=== PATIENT | male | born 1955 | race Caucasian/White ===

== ENCOUNTER 2017-05-04 14:37 | Outpatient (CLI) | payer OTHER ==
--- NOTE | 2017-05-04 15:41 | ULT ---
RENAL ULTRASOUND: CLINICAL HISTORY: Renal insufficiency. FINDINGS: Demonstrated right renal length is approximately 15 cm and the left renal length approximately 12 cm. There is a rounded focus of decreased echogenicity at the level of the pole of the right kidney codie suring up to 6.6 cm in diameter. Subtle internal echoes are present without evidence of discernible internal flow. The internal echoes may relate to reverberation artifact. The urinary bladder is grossly unremarkable. There is no overt hydronephrosis of either kidney. IMPRESSION: 1. Right renal cyst, prominent in size. 2. No overt hydronephrosis. POS: [facility]
== END 2017-05-04 14:38 | disposition home or self-care (01) ==
LOC: ULT 14:37
PROVIDERS: ATTEND Urology
DX: N18.9 Chronic kidney disease, unspecified (principal); N28.1 Cyst of kidney, acquired
CPT/HCPCS: 76770

== ENCOUNTER 2017-07-19 11:15 | Outpatient (CLI) | payer OTHER | END 2017-07-19 11:16 | disposition home or self-care (01) | LOC: BICRAD 11:15 | PROVIDERS: ATTEND Internal Medicine | DX: M25.562 Pain in left knee (principal) ==

== ENCOUNTER 2018-04-30 11:46 | Emergency (ER) | payer OTHER ==
[2018-04-30 12:18] LABS: #Eosinphils 0.1 thou/uL (0.0-0.7); #Lymphocytes 2.2 thou/uL (1.20-3.40); #Monocytes 0.5 thou/uL (0.11-0.59); #Neutrophils 5.2 thou/uL (1.40-6.50); %Basophils 0.5 % (0.0-1.0); %Lymphocytes 27.8 % (21.0-51.0); %Monocytes 6.2 % (0.0-10.0); %Neutrophils 64.5 % (42.0-75.0); Hemoglobin 15.3 g/dL (14.0-18.0); Mean Corpuscular HGB CONC 32.5 g/dL (32.0-36.0); Mean Corpuscular Volume 92.4 fL (78.0-98.0); Mean Platelet Volume 9.3 fL (7.4-10.4); Platelet Count 210 thou/uL (130-400); RBC Distribution Width 12.5 % (11.5-14.5); Red Blood Cell (RBC) Count 5.08 mill/uL (4.70-6.10)
[2018-04-30 12:47] LABS: ALT (SGPT) 17 U/L (8-55); AST (SGOT) 17 U/L (5-34); Albumin 4.2 g/dL (3.4-4.8); Alkaline Phosphatase 81 U/L (40-150); Anion Gap 13 mmol/L (10-20); BUN (Urea Nitrogen) 25 mg/dL (8.4-25.7); Bilirubin, Total 0.7 mg/dL (0.2-1.2); CK (CPK) 51 U/L (30-200); Calc. Creatinine Clearance 0 mL/min (70-130); Calcium 9.7 mg/dL (7.8-10.44); Carbon Dioxide 28 mmol/L (23-31); Estimated GFR-MDRD 50; Globulin 3.4 g/dL (2.4-3.5); Glucose 84 mg/dL (80-115); Lipase 32 U/L (8-78); Protein, Total 7.6 g/dL (5.8-8.1)
[2018-04-30 12:51] LABS: Chloride 105 mmol/L (98-107); Sodium 142 mmol/L (136-145)
--- NOTE | 2018-04-30 13:27 | RAD ---
PORTABLE AP CHEST: Date: 04/30/18 HISTORY: Chest pain and chest congestion for 10-12 days. COMPARISON: No recent comparison is available. Prior chest x-ray on 03/05/06 is made available. FINDINGS: Cardiac silhouette and pulmonary vasculature are within normal limits. The lungs do appear clear. [facility]lene st is overall stable compared to the prior study. IMPRESSION: No acute cardiopulmonary process. POS: [facility]
[2018-04-30] MEDS ORDERED: cloNIDine 0.1 MG TAB ONE (13:56)
[2018-04-30 14:44] LABS: Troponin I 0.063 ng/mL (< 0.028)
--- NOTE | 2018-05-04 13:29 | EKG ---
Test Reason : Blood Pressure : / mmHG Vent. Rate : 066 BPM Atrial Rate : 066 BPM P-R Int : 154 ms QRS Dur : 090 ms QT Int : 428 ms P-R-T Axes : 052 -46 206 degrees QTc Int : 448 ms Sinus rhythm with Fusion complexes Possible Left atrial enlargement Left anterior fascicular block Left ventricular hypertrophy with repolarization abnormality Abnormal ECG Confirmed by RADHA ARMENTA ([id number]), editor publications TIERRA BERRY ([id number]) on 05/04/2018 1:28:43 PM Referred By: Confirmed By:RADHA ARMENTA
--- NOTE | 2018-05-04 13:29 | EKG ---
Test Reason : Blood Pressure : / mmHG Vent. Rate : 058 BPM Atrial Rate : 058 BPM P-R Int : 150 ms QRS Dur : 094 ms QT Int : 488 ms P-R-T Axes : 027 -44 207 degrees QTc Int : 479 ms Sinus bradycardia Left axis deviation Left ventricular hypertrophy with repolarization abnormality Abnormal ECG Confirmed by RADHA ARMENTA ([id number]), newspaper photo editor TIERRA BERRY ([id number]) on 05/04/2018 1:28:50 PM Referred By: Confirmed By:RADHA ARMENTA
== END 2018-04-30 15:06 | disposition home or self-care (01) ==
LOC: ERS 11:46
DX: R05 Cough (principal); I10 Essential (primary) hypertension; F17.210 Nicotine dependence, cigarettes, uncomplicated; Z79.899 Other long term (current) drug therapy
CPT/HCPCS: 36415; 71045; 80053; 82550; 82553; 83690; 83880; 84484; 85025; 93005; 94640; J7620

== ENCOUNTER 2018-05-07 23:21 | Inpatient (IN) | payer OTHER ==
[~2018-05-07 23:21] MED LIST: ISOVUE-370 76%-LOCM 1 ML ONE
[2018-05-07] MEDS ORDERED: Adenosine 6 MG/2 ML VIAL ONE (23:38)
[2018-05-07] MEDS ORDERED: Metoprolol Tartrate 5 MG/5 ML VIAL ONE (23:52)
--- NOTE | 2018-05-08 00:03 | RAD ---
PORTABLE UPRIGHT FRONTAL CHEST RADIOGRAPH 05/07/18 COMPARISON: 04/30/18 HISTORY: Chest pain and chest congestion. FINDINGS: The heart and mediastinal contours are stable. Lungs appear clear. IMPRESSION: No acute findings. POS: [facility]
[2018-05-08 00:15] LABS: #Basophils 0.1 thou/uL (0.0-0.2); #Eosinphils 0.1 thou/uL (0.0-0.7); #Lymphocytes 2.5 thou/uL (1.20-3.40); #Monocytes 0.8 thou/uL (0.11-0.59); #Neutrophils 7.2 thou/uL (1.40-6.50); %Eosinophils 1.1 % (0.0-10.0); %Lymphocytes 23.6 % (21.0-51.0); %Monocytes 7.3 % (0.0-10.0); Hemoglobin 15.7 g/dL (14.0-18.0); Mean Corpuscular Hemoglobin 29.9 pg (27.0-31.0); Mean Corpuscular Volume 93.2 fL (78.0-98.0); Mean Platelet Volume 9.7 fL (7.4-10.4); Platelet Count 219 thou/uL (130-400); RBC Distribution Width 12.2 % (11.5-14.5); Red Blood Cell (RBC) Count 5.25 mill/uL (4.70-6.10); White Blood Cell (WBC) Count 10.7 thou/uL (4.8-10.8)
[2018-05-08 00:35] LABS: ALT (SGPT) 14 U/L (8-55); AST (SGOT) 17 U/L (5-34); Albumin 4.1 g/dL (3.4-4.8); Alkaline Phosphatase 74 U/L (40-150); Anion Gap 18 mmol/L (10-20); BUN (Urea Nitrogen) 27 mg/dL (8.4-25.7); Bilirubin, Total 0.4 mg/dL (0.2-1.2); CK (CPK) 53 U/L (30-200); Calc. Creatinine Clearance 0 mL/min (70-130); Calcium 9.1 mg/dL (7.8-10.44); Carbon Dioxide 18 mmol/L (23-31); Chloride 105 mmol/L (98-107); Estimated GFR-MDRD 41; Globulin 3.3 g/dL (2.4-3.5); Glucose 164 mg/dL (80-115); Potassium 3.8 mmol/L (3.5-5.1); Protein, Total 7.4 g/dL (5.8-8.1); Sodium 137 mmol/L (136-145)
[2018-05-08 01:08] LABS: CKMB 1.9 ng/mL (0-6.6)
[2018-05-08] MEDS ORDERED: Acetaminophen 325 MG TAB PO PRN (01:56)
[2018-05-08] MEDS ORDERED: Ondansetron PF 4 MG/2 ML Vial IVP PRN (01:56)
[2018-05-08] MEDS ORDERED: cloNIDine 0.1 MG TAB PO PRN (01:58)
[2018-05-08] MEDS ORDERED: Labetalol HCl 100 MG/20 ML VIAL SLOW IVP SCH (02:00)
[2018-05-08] MEDS ORDERED: Labetalol HCl 100 MG/20 ML VIAL SLOW IVP PRN (02:00)
[2018-05-08] MEDS ORDERED: Vancomycin HCl 1 GM in Premix Bag 1 BAG IVPB SCH (02:10)
[2018-05-08] MEDS ORDERED: cefTRIAXone\\ROCEPHIN 2 GM in Sodium Chloride 0.9% 100 ML IVPB SCH (02:15)
[2018-05-08 03:16] LABS: #Basophils 0.1 thou/uL (0.0-0.2); #Eosinphils 0.1 thou/uL (0.0-0.7); #Lymphocytes 2.6 thou/uL (1.20-3.40); #Monocytes 0.7 thou/uL (0.11-0.59); #Neutrophils 4.7 thou/uL (1.40-6.50); %Basophils 1.5 % (0.0-1.0); %Eosinophils 1.4 % (0.0-10.0); %Lymphocytes 31.1 % (21.0-51.0); %Monocytes 8.7 % (0.0-10.0); %Neutrophils 57.3 % (42.0-75.0); Hemoglobin 14.7 g/dL (14.0-18.0); Mean Corpuscular HGB CONC 32.8 g/dL (32.0-36.0); Mean Corpuscular Hemoglobin 30.5 pg (27.0-31.0); Mean Corpuscular Volume 92.9 fL (78.0-98.0); Mean Platelet Volume 9.5 fL (7.4-10.4); Platelet Count 211 thou/uL (130-400); RBC Distribution Width 12.1 % (11.5-14.5); Red Blood Cell (RBC) Count 4.83 mill/uL (4.70-6.10); White Blood Cell (WBC) Count 8.2 thou/uL (4.8-10.8)
[2018-05-08 03:40] LABS: Troponin I 0.045 ng/mL (< 0.028)
[2018-05-08] MEDS ORDERED: Metoprolol Tartrate 25 MG TAB ONE (03:46)
[2018-05-08 03:51] LABS: Anion Gap 14 mmol/L (10-20); BUN (Urea Nitrogen) 24 mg/dL (8.4-25.7); Calc. Creatinine Clearance 72 mL/min (70-130); Calcium 8.8 mg/dL (7.8-10.44); Carbon Dioxide 19 mmol/L (23-31); Chloride 109 mmol/L (98-107); Estimated GFR-MDRD 52; Glucose 86 mg/dL (80-115); Potassium 4.3 mmol/L (3.5-5.1); Sodium 138 mmol/L (136-145)
--- NOTE | 2018-05-08 05:18 | HP ---
PRIMARY CARE PHYSICIAN: Dr. Luis Ibarra. CODE STATUS: Full code. TIME OF EVALUATION: 2:00 a.m. CHIEF COMPLAINT: Chest pain and high blood pressure. HISTORY OF PRESENT ILLNESS: This is a 62-year-old male patient with past medical history significant for medical history of hypertension and 2 to 3 years ago, had some kind of arrhythmia, was treated by Dr. Hernandez and Dr. Hernandez had told him that he was cured from that problem and never had any problem anymore. Today, the patient woke up, was having midsternal chest pain that was bothersome, 3/10. No clear triggers. No alleviating factors. The patient went and checked his blood pressure and heart rate, and noticed that blood pressure was in the 200s and the heart rate was 170, he waited few minutes and rechecked it and it was all the same thing. The patient took one dose of at home and decided to come to the hospital. Here, he was found to be in PSVT and was given adenosine that broke down the rhythm. The patient now in normal sinus rhythm, was still hypertensive. We will treat for hypertensive urgency, and we will monitor on tele. Symptoms were severe. Symptoms started suddenly. REVIEW OF SYSTEMS: CONSTITUTIONAL: No fever, chills, or generalized weakness. RESPIRATORY: No cough, sputum production, or shortness of breath. CARDIOVASCULAR: The patient has chest tightness with palpitation and hypertension. GASTROINTESTINAL: The patient had nausea. No vomiting, diarrhea, or abdominal pain. EMERGENCY MEDICAL DISPATCHER: No dizziness, headache, or feeling lightheaded. GENITOURINARY: No burning on urination. EXTREMITIES: No leg swelling. All other systems were reviewed and negative except for the findings mentioned above. PAST MEDICAL HISTORY: Positive for hypertension. FAMILY HISTORY: Mother from Alzheimer's and father from lung cancer. PAST SURGICAL HISTORY: Right-sided testicle removal. PSYCHIATRIC HISTORY: No previous psych history. SOCIAL HISTORY: No drugs or alcohol. The patient quit smoking three weeks ago. ALLERGIES: KNOWN ALLERGIES TO PENICILLIN. REPORTED MEDICATIONS: Losartan/hydrochlorothiazide. PHYSICAL EXAMINATION: VITAL SIGNS: On presentation; blood pressure 193/153, heart rate 117, respiratory rate was 20, temperature 97.6. Pain is 3/10. Oxygen saturation 99% on room air. GENERAL APPEARANCE: The patient is alert, oriented, not in acute distress. HEENT: Eyes, normal conjunctivae. Moist oral mucosa. Anicteric. No JVD. RESPIRATORY: Bilateral air entry. No rales. No wheezing. Symmetric expansion. CARDIOVASCULAR: Normal rate and regular rhythm. No murmurs, no gallops, no edema. The patient is hypertensive. Heart rate is controlled. ABDOMEN: Soft. Normal bowel sounds. MUSCULOSKELETAL: Baseline range of motion and strength. No tenderness. SKIN: Warm, intact. No pallor. No rash. No redness. Peripheral pulses are present. Capillary refill seems to be intact. NEURO: No evidence of any new focal weakness. Baseline speech. Cranial nerves seems to be intact. PSYCHIATRIC: The patient is in good mood. No anxiety. Optimal judgment. DIAGNOSTIC STUDIES: EKG was reviewed and disclosed with ER provider. The patient presented with sinus tachycardia. VT at the rate of 169, FL 122, with QT corrected of 513. After adenosine, EKG was reviewed. The patient has normal sinus rhythm with a rate of 68, incomplete RBBB, left anterior fascicular block, FL 176, QT corrected 150. Labs were reviewed. White count 10.7, hemoglobin 15.7, MCV 93.2, and platelet count 219. Chemistry; sodium 137, potassium 3.8, chloride 105; carbon dioxide 19, anion gap of 18, BUN 27, creatinine 1.7, GFR 41, glucose 164, calcium 9.1, and total bilirubin 0.4. LFTs were negative. Troponin 0.036. Beta natriuretic peptide 87.50. Total protein 7.4, albumin 4.1, globulin 3.3, and albumin-globulin ratio is 1.2. ASSESSMENT AND PLAN: The patient will be placed in the hospital with following medical problems: 1. Paroxysmal supraventricular tachycardia. The patient presented with heart rate in the 170s. Breakdown with adenosine 6 mg. We will do echo in the morning. We will consult Cardiology. We will monitor on tele. We will treat arrhythmia and pending the patient's progress clinically. As of now, he is stable. 2. Hypertensive urgency. The patient has very high blood pressure in the systolic in the 170s to 190s. We have started to give IV p.r.n. medications. We will put the patient on clonidine, we will monitor. If uncontrolled, we might start him on Cardene drip. The patient does not have any symptoms with high blood pressure. No evidence of any acute target organ damage. 3. Deep venous thrombosis prophylaxis. 4. Possible acute kidney injury on chronic kidney disease. Creatinine is 1.7, initially it was 1.4 and during the previous admission, it was 1.4, so the patient has a chronic kidney disease. We will monitor kidney function, we will treat accordingly. If not improving, might need Nephrology consultation. 5. Hyperglycemia of glucose 164. The patient did not report being a diabetic, could be secondary to acute physical distress. We will monitor. We will treat accordingly. 6. Indeterminate troponin of 0.036, it is very minimally elevated, we will trend troponins, we will treat accordingly. No further intervention noted on decreasing blood pressure at this point. Job ID: [id number]
[2018-05-08] MEDS ORDERED: Adenosine 6 MG/2 ML VIAL ONE (05:27)
[2018-05-08 06:24] LABS: Troponin I 0.039 ng/mL (< 0.028)
[2018-05-08] MEDS ORDERED: Enoxaparin Sodium 40 MG/0.4 ML SYRINGE SC SCH ×2 (09:00→09:30)
[2018-05-08] MEDS ORDERED: Senokot S 8.6-50 MG TAB PO PRN (09:19)
[2018-05-08] MEDS ORDERED: Bisacodyl 5 MG TAB PO PRN (09:19)
--- NOTE | 2018-05-08 09:27 | CT ---
PRELIMINARY REPORT/[facility]/EMERGENTY AFTER-HOURS PROCEDURE CT Angiography Chest With Contrast EXAM DATE/TIME: 05/08/2018 12:18 AM CLINICAL HISTORY: 62 years old, male; dry, hacking cough. chest pain; woke from sleep with midsternal "soreness". He re ports URI symptoms x 10 days - treated by his pcp. upon waking tonight he took his BP and it was 180- 190 systolic, took total of 1300mg of asa prior to arrival. TECHNIQUE: Axial computed tomographic angiography images of the chest with intravenous contrast using CT angiogr aphy protocol. MIP reconstructed images were created and reviewed. COMPARISON: No relevant prior studies available. FINDINGS: Pulmonary arteries: No evidence of pulmonary embolism. Aorta: Approximate 4.3 cm non-ruptured aneurysmal dilatation of the ascending thoracic aorta. Lungs: No alveolar infiltrate. 2 mm nodule lateral left upper lobe axial image 25. Two 4-5 mm nodules along the minor fissure. Two 3-4 mm nodules within the inferior right lower lobe on axial images 90 and 94-95. 3 mm nodule adjacent to the inferior left major fissure. Pleural space: No pleural fluid collection. No pneumothorax. Heart: No RV dysfunction. No pericardial effusion. Liver: Small cysts within the liver. Lymph nodes: No pathologically enlarged lymph nodes. Bones/joints: Spinal degenerative changes. Soft tissues: Unremarkable. IMPRESSION: 1. No evidence of pulmonary embolism. 2. No alveolar infiltrate. 3. Approximate 4.3 cm non-ruptured aneurysmal dilatation of the ascending thoracic aorta. 4. 2 mm nodule lateral left upper lobe axial image 25. Two 4-5 mm nodules along the minor fissure. Tw o 3-4 mm nodules within the inferior right lower lobe on axial images 90 and 94-95. 3 mm nodule adjac ent to the inferior left major fissure. A total For patients at low risk (minimal or absent history o f smoking and of other known risk factors), no routine follow-up is indicated. For patients at high r isk (history of smoking or of other known risk factors), consider optional CT at 12 months. (Nate et al., Fleischner Society, 2017). Thank you for allowing us to participate in the care of your patient. Dictated and Authenticated by: Beka Siddiqui MD 05/08/2018 1:09 AM Central Time ([place] & [place]) FINAL REPORT CT ARTERIOGRAM CHEST WITH IV CONTRAST AND 3D MIP IMAGING PERFORMED ON AN EMERGENCY BASIS: Date: 05/08/18 Time: 0020 hours HISTORY: Chest pain. Dyspnea. FINDINGS: Findings agree with the preliminary report by [facility]. No CT evidence of pulmonary embolus. Mild dilatat ion of the ascending aorta. Small bilateral parenchymal lung nodules, less than 0.8 cm. POS: [facility]
[2018-05-08] MEDS ORDERED: Enoxaparin Sodium 40 MG/0.4 ML SYRINGE ONE (11:26)
[2018-05-08 12:39] VITALS: BMI 27.3
--- NOTE | 2018-05-08 14:30 | PDOC.EVN ---
Event Note - Event Note Event Note: Pt seen and examined in ER feels much better chart reviewd HR and BP controlled. will start Losartan again. ECHO. Trand troponin. may need cath ? SSS. Gives history of fast HR and then very slow when he was on BB. Change to inpt due to uncontrolled HTN w 222/138 and due to PSVT.will libertad need cath and PPM placement Titrate BP meds to control HR as well. CTA show Ascdening AA <[address] in 6 months cardiology recs requested
[2018-05-08] MEDS: Carvedilol 6.25 MG TAB PO SCH (17:34)
--- NOTE | 2018-05-08 22:37 | CON ---
DATE OF CONSULTATION: CARDIOLOGY CONSULT PRIMARY CARE PHYSICIAN: Dr. Ibarra PRIMARY RESIDENTIAL CAREGIVER: Dr. Claire Hernandez. REFERRING PHYSICIAN: Dr. Keith. REASON FOR CARDIOLOGY CONSULT: Chest pain rule out. HISTORY OF PRESENT ILLNESS: The patient is a 62-year-old male with a significant history of hypertension. He has seen Dr. Hernandez about 10 years ago, and he had cardiac catheterization in 2002, which showed normal coronary arteries with EF 65% to 70%. The patient was doing well until last night. Around 8 o'clock, he just woke up and noticed that he had fullness to the midsternal area and pressure to the forehead. The patient checked blood pressure at that point, which was 187/154 with heart rate of 170. He took 2 tablets of aspirin 325 mg, and 30 minutes after the medication administration, his blood pressure continued to be more than 180 with a heart rate of 170s. The patient decided to present to emergency department for further evaluation and treatment. After the patient received adenosine chemical cardioversion, the patient's heart rates are going down to 60s, but while he was still in the ER, the patient's heart rates were going up to 130s. The patient received metoprolol IV push and the patient's heart rate were going back to 60s. Since then, the patient's heart rate remained in the sinus rhythm in the 60s. His blood pressure prior to this event has been in the 120s to 180s until April 25. After April 25, he was found to have upper respiratory infection, and he was prescribed prednisone. Since then, his blood pressure had been in the 150 to 100, but he does not have any severe cough since last May 05. The patient had echocardiogram done in February 2006, which showed EF of 55% to 60%. The patient was seen by Dr. Hernandez in 2005 for acute syncopal episode. The patient had an echocardiogram done, which showed EF 55% to 60%, mild tricuspid valve regurgitation, and mild pulmonary valve regurgitation. The patient underwent cardiac catheterization in March 2003, which showed normal coronary arteries with normal EF. Since then, he has not seen any merchandise flow manager. PAST MEDICAL HISTORY: Hypertension. PAST SURGICAL HISTORY: Right-sided testicle removed. FAMILY HISTORY: The patient's mother due to complication from Alzheimer's. The patient's father due to lung cancer. SOCIAL HISTORY: He is . He has 4 children, one children due to motor vehicle accident. Otherwise, 3 of them living well and healthy. The patient quit smoking about 3-1/2 weeks ago. He used to smoke 6 packs a day for 2 weeks and quit for 2 weeks for 21 years. 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 At that time, he does not smoke. He quit drinking about 5 years ago. He denied illicit drug abuse. He drinks coffee at least 20 cups a day while he is working because he had to work 24-hour shift. He is very active at work. He runs in the field in a fast pace without any cardiac complaints. ALLERGIES: HE IS ALLERGIC TO PENICILLIN. HOME MEDICATIONS: He is on losartan with hydrochlorothiazide 50/12.5 mg once a day. REVIEW OF SYSTEMS: A 12-point review of systems negative unless otherwise mentioned. He has chronic knee pain, especially the left knee. He receives steroid injection from Dr. Gustafson's office every 4 to 6 weeks. PHYSICAL EXAMINATION: VITAL SIGNS: Blood pressure at the floor 158/92, temperature 98.1, pulse is 60 and sinus rhythm, respiratory rate 16, O2 saturation 96% with room air. GENERAL: The patient is alert and oriented x4, not in acute distress. HEENT: Head normocephalic, atraumatic. Eyes; extraocular muscle movement intact. ENT and mouth; oral and nasal mucosa moist without lesion. NECK: No JVD. Supple. Normal range of motion. RESPIRATORY: Clear to auscultate bilaterally. No wheezing, rales, or rhonchi noted. CARDIOVASCULAR: Regular rate and rhythm. Normal S1, S2. There is no S3, S4. No significant murmur, hives, or thrills noted. 2+ pulses in the bilateral lower extremities. No edema. Carotid pulses are present without bruit or thrill. ABDOMEN: Soft, nontender. No mass to palpitate. Bowel sounds are present. SKIN: Warm and dry. No lesion, rash, bruises noted. He has like small less than 1 cm diameter ecchymosis in the back. Family member stated that it has happened since he was in the ER. MUSCULOSKELETAL: The patient is able to move all extremities without difficulty. The patient denied claudication. PSYCHIATRIC: The patient's mood is pleasant. NEUROLOGIC: The patient is alert and oriented x4, nonfocal. LABORATORY DATA: WBC 8.2, hemoglobin 14.7, hematocrit 44.8, and platelets 211. Sodium 138, potassium 4.3, BUN 24, creatinine 1.38, AST 17, ALT 14, CK-MB 1.9. Troponin 0.036, 0.045, 0.039. BNP is 87.5. Renal ultrasound report in April 2017 showed a right renal cyst, prominent in size. No overt hydronephrosis. The patient's chest and thoracic CTA showed no evidence of pulmonary embolism. A 4.3 nonruptured aneurysmal dilation of ascending thoracic aorta and a small cyst within the liver. The patient's chest x-ray showed no acute finding. ASSESSMENT AND PLAN: 1. Supraventricular tachycardia with status post adenosine cardioversion. The patient's heart rate has been stable at this moment. We would like to go ahead and start carvedilol 6.25 mg twice a day at this moment. The patient is going to have stress test tomorrow. The patient is having echocardiogram at this moment and results are pending at this moment. 2. Hypertension urgency: The patient's blood pressure is stable at this moment. Again, we would like to start carvedilol 6.25 mg twice a day. He is on losartan/hydrochlorothiazide 50/12.5 one tablet once a day. We would like to continue to monitor. 3. Acute kidney insufficiency: The patient's creatinine level is improving at this moment. We would like to continue to monitor. Thank you for allowing the Cardiology Service to participate in the care of this patient. We will follow along the patient's care team and make further evaluation as appropriate. Job ID: [id number]
[2018-05-09 05:51] LABS: Anion Gap 14 mmol/L (10-20); BUN (Urea Nitrogen) 24 mg/dL (8.4-25.7); Calc. Creatinine Clearance 59 mL/min (70-130); Calcium 9.5 mg/dL (7.8-10.44); Carbon Dioxide 25 mmol/L (23-31); Chloride 105 mmol/L (98-107); Estimated GFR-MDRD 42; Glucose 93 mg/dL (80-115); Potassium 4.6 mmol/L (3.5-5.1); Sodium 139 mmol/L (136-145)
--- NOTE | 2018-05-09 06:09 | CON ---
DATE OF CONSULTATION: 05/08/2018 Please refer to my dictation. INDICATION FOR CONSULTATION: A 62-year-old patient with poorly controlled hypertension which has been a recent and sudden onset and also a history of tachycardia which appeared to be SVT. HISTORY OF PRESENT ILLNESS: This is a very pleasant 62-year-old gentleman who I saw many years ago, who underwent cardiac catheterization around 1999 and again in 2003, was found to have minimal plaque in the left circumflex, otherwise no significant abnormalities were noted. He has had some problems with syncope in the past, which was felt to be due to beta blockers. The beta blockers were stopped and then he has had no further syncope. He was, however, admitted to the emergency room today. He came in due to his rapid heart rate after he checked his blood pressure this morning, was found to be significantly elevated. His heart rate was significantly elevated also, he presented to the emergency room and was found to be in SVT. He was given adenosine. The heart rate improved, but then he did have another episode of SVT, but now has been stable after he has been given some beta blockers, and at this time he is relatively asymptomatic. He denied any chest pain. He had had a cough recently and was either given antibiotics or steroids. He is uncertain. His said he was given antibiotics. He said he was given steroids. No one is definitely certain exactly what he had for about 3 days, but I suspect this was a Z-Salvador, but is uncertain. He may have had some steroids which may have caused some problems with elevation of the blood pressure. Otherwise, he has had no dizziness and he has had no significant problems. He has been doing very well since he was last seen in about 2003 by me. Otherwise, he had had no complaints. He does have hypertension, but denied any history of hypercholesterolemia or diabetes. He did smoke in the past , but stopped about 3 weeks ago. He stopped drinking about 5 years ago. Previously , he said he was relatively heavy smoker and drinker in the past. PAST MEDICAL HISTORY: Only significant for the minimal coronary disease, history of syncope, and history of hypertension. SOCIAL HISTORY: He is . He stopped smoking and stopped drinking as noted above. 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 FAMILY HISTORY: Noncontributory. MEDICATIONS: At this time include, 1. Toprol. 2. Aspirin. 3. Possibly, he was given a Z-Salvador. 4. I believe,at home, has been taking losartan/hydrochlorothiazide 50/12.5. ALLERGIES: HE HAS NO SIGNIFICANT ALLERGIES, BUT DOES HAVE INTOLERANCE TO LISINOPRIL WHICH CAUSES COUGH. REVIEW OF SYSTEMS: A 12-point review of systems unremarkable except what is noted above. He does wear glasses. He did have syncopal episodes many years ago, but no more after he stopped taking the beta blockers. PHYSICAL EXAMINATION: GENERAL: Reveals a very pleasant, well-developed, well-nourished gentleman, who is in no acute distress. VITAL SIGNS: Blood pressure is 138/91, earlier was 158/92. In the emergency room , it was significantly more elevated. At this time, he is afebrile, heart rate in the 60s, respiratory rate is 16, and O2 saturation 95%. HEENT: Reveals head to be normocephalic and atraumatic. Carotid pulses are present. There were no bruits. There is no JVD. The thyroid is not enlarged. Oral mucosa is pink and moist. CHEST: Clear to auscultation. There were no rales, rhonchi, or wheezing noted at this time. CARDIOVASCULAR: Reveals a regular rate and rhythm. There is normal S1 and S2. I do not hear an S3 nor an S4. No other any significant murmurs, heaves, thrills, bruits, or rubs. ABDOMEN: Soft, flat, and nontender. Positive bowel sounds are present. There is no organomegaly or masses noted. Femoral pulses are present. EXTREMITIES: No clubbing, cyanosis, or edema. Pedal pulses are present. NEUROLOGIC: The patient appears to be fully intact. He has normal strength and tone. SKIN: Warm and dry. IMAGING DATA: His EKG at this time shows a sinus rhythm, earlier did show evidence of supraventricular tachycardia. LABORATORY DATA: Shows a hemoglobin of 14.7, WBC of 8.2 with a platelet count of 211. His potassium was 4.3, creatinine was 1.7, now decreased down to 1.38. His troponin I is slightly indeterminate at 0.036, increased up to 0.045 and back down to 0.039, and is likely due to the elevated heart rate with the SVT. MB was 1.9. IMPRESSION: 1. Episode of supraventricular tachycardia. We will try to manage this by medications. We will ask repair welder to see this patient as he has not been able to tolerate beta blockers in the past and has syncopal episodes associated with Toprol. We will switch him at this time. His present medications, he has been on Coreg. We can obviously try this to see whether or not it works for him. I would continue the losartan. He may need to be taken off the diuretic aspect; although he has still hydrochlorothiazide associated with or involved with the losartan. The blood pressure is under much better control at this time. I am uncertain as to why he spiked up. He had been doing very well. He has been on lisinopril for many years until he was switched over to losartan. As far as his supraventricular tachycardia is concerned, we will ask repair welder to visit with him to see if there is any other recommendations whether or not he may need to undergo an ablation of the supraventricular tachycardia. 2. Hypertension, which we will need to control by medical management. 3. History of tobacco abuse. Fortunately, he stopped smoking about 3 weeks ago and I congratulated him on this. We will be more than happy to continue to follow the patient with you. Job ID: [id number] MTDD
[2018-05-09] MEDS: Carvedilol 6.25 MG TAB PO SCH ×2 (10:57→18:05)
[2018-05-09] MEDS: Losartan 25 MG TAB PO SCH (10:59)
[2018-05-09] MEDS: Enoxaparin Sodium 40 MG/0.4 ML SYRINGE SC SCH (11:42)
--- NOTE | 2018-05-09 12:10 | NM ---
MYOCARDIAL PERFUSION SCAN WITH SPECT IMAGING: History: Hypertension, coronary artery disease. Examination was performed using 32.2 mCi Technetium 99M Sestamibi on the stress and 9.8 mCi Technetiu m 99M Sestamibi on the resting images. FINDINGS: This shows a normal distribution of radiopharmaceutical without evidence of ischemia or scar. Wall motion: There is global hypokinesis noted. Left ventricular ejection fraction: The calculated left ventricular ejection fraction is 34%. IMPRESSION: 1. No evidence of ischemic change. 2. Diminished left ventricular ejection fracture of 34%. Please correlate with echocardiogram. POS: [facility]
--- NOTE | 2018-05-09 12:51 | CON ---
DATE OF CONSULTATION: 05/08/2018 ELECTROPHYSIOLOGY CONSULTATION REFERRING PHYSICIAN: Claire Hernandez MD REASON FOR CONSULTATION: Supraventricular tachycardia. HISTORY OF PRESENT ILLNESS: Mr. Valverde is a pleasant 62-year-old male, who around 8 o'clock this morning, woke up noticing he had fullness in his midsternal area and pressure to the forehead. His blood pressure was extremely elevated by his home blood pressure cuff and his heart rate was reading at 170 beats per minute. He took 2 full-dose aspirins, but continued to have hypertension and high heart rate prompting his presentation to the emergency room for further evaluation and treatment. He received adenosine for chemical cardioversion, bringing his heart rate down to the 60s, but while still in the ER, his heart rate would go back up to 130 beats per minute. He received IV metoprolol, which is largely kept in sinus rhythm with controlled heart rate since that time. He was admitted to observation for further evaluation and regarding the chest pain that he presented with as well as the tachycardia. He has struggled with high blood pressure prior to this event and is also being treated for an upper respiratory infection on prednisone. He is scheduled for stress test tomorrow morning. EP consult was initiated given his supraventricular tachycardia. Mr. Valverde is currently feeling well. He denies any current heart racing, palpitations, chest pain, pressure, syncope, near syncope, stroke, or stroke-like symptoms. Currently, he is feeling well. He was seen by Dr. Hernandez in the remote past for cardiac catheterization again in 2003, where he was found to have minimal plaque in the left circumflex. He also had some syncopal issues in the past attributed to beta-ericka therapy, which was then discontinued. PAST MEDICAL HISTORY: Hypertension, syncope, minimal coronary artery disease, diagnosed on catheterization in 2003. PAST SURGICAL HISTORY: Right testicle removed. FAMILY HISTORY: Mother passed from complications related to Alzheimer disease dementia. Father passed from lung cancer. SOCIAL HISTORY: with 4 children, 3 of them currently living, 1 passed in the motor vehicle accident. Quit smoking 3 weeks ago. Has an extensive history of tobacco habituation. 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 Quit drinking 5 years prior. Denies illicit drug use. Positive for high caffeine intake while working in the [employer]. ALLERGIES: PENICILLIN. HOME MEDICATIONS: Losartan/hydrochlorothiazide 50/12.5 mg daily. REVIEW OF SYSTEMS: A 12-point review of systems is conducted and is negative except that listed above in the HPI. It is positive for chronic left knee pain. PHYSICAL EXAMINATION: VITAL SIGNS: Temperature 98.1, pulse 60, blood pressure 130/91, respirations 16, and oxygen is 95% on room air. GENERAL: This is a well-groomed, well-nourished gentleman, in no apparent distress. HEENT: Normocephalic and atraumatic. Sclerae anicteric. EOMs are intact. Oral mucosa is moist and pink. Thyroid is not enlarged. NECK: Supple without jugular venous distention. CHEST: Clear to auscultation bilaterally without wheezes, crackles or rhonchi bilaterally. CARDIOVASCULAR: Heart rate is irregularly irregular with crisp S1 and S2. No significant murmurs, rubs, or gallops are appreciated. PMI is nondisplaced. ABDOMEN: Soft and nontender. Positive bowel sounds are noted throughout. EXTREMITIES: Warm and dry to touch without clubbing, cyanosis, or edema. NEUROLOGIC: The patient is nonfocal and exam is grossly intact. DATABASE: EKG and telemetry were all personally reviewed, largely reveal sinus rhythm in the 60s, which is the rhythm he is currently in, but initial EKG and telemetry tracings show paroxysmal atrial tachycardia versus atrial flutter. Echocardiogram on 05/08/2018, EF 35% to 40%. with global hypokinesis, mild dilation of the left atrium, right atrium normal size, mild mitral regurgitation, mild tricuspid regurgitation, dilated aortic root, LV size is severely increased at 7.3 cm. LABORATORY DATA: Hematology reviewed is unremarkable. Chemistry; potassium 4.6, creatinine 1.65. Serial troponins are slightly elevated, max is 0.045 deemed indeterminate. BNP 87.5. IMPRESSION: 1. Paroxysmal atrial tachycardia versus atrial flutter. 2. Newly found cardiomyopathy with ejection fraction of 35% to 40%. 3. Tendency for bradycardia with beta-ericka therapy. PLAN AND RECOMMENDATIONS: We discussed treatment options for his supraventricular tachycardia, which is likely a paroxysmal atrial tachycardia, alternately in atrial flutter. We discussed an EP study for improved diagnostics and also proceeding with radiofrequency ablation, pending the results of the EP study. Risks of EP study and ablation include bleeding, hematoma at the groin site, cardiac arrhythmias, perforation of the heart, pericardial effusion, possible need for chest tube insertion or CV surgery. The patient voices understanding and wishes to proceed with EP study and possible ablation tomorrow. We will keep him n.p.o. after midnight, pending laboratory sampler availability. Alternatively, we also discussed medical management, which would be somewhat limited as he is intolerant to beta blockers and had bradycardia with near syncope in the past while on beta-ericka therapy. Thank you for allowing us to participate in the care of this patient. Job ID: [id number]
--- NOTE | 2018-05-09 15:16 | PDOC.PN ---
- Subjective Encounter Start Date: 05/09/18 Encounter Start Time: 15:15 Subjective: feels well but still having episodes of HR in 130s .largely asymptomatic -: no CP/SOB - Objective Resuscitation Status - Order Detail: 05/08/18 01:56 Resuscitation Status Routine Resuscitation Status: FULL: Full Resuscitation MAR Reviewed: Yes Vital Signs & Weight: Vital Signs (12 hours) Temp Pulse Resp BP BP Pulse Ox 05/09/18 11:40 97.5 F L 54 L 17 123/85 97 05/09/18 10:57 161/92 H 05/09/18 08:40 95 05/09/18 07:36 98 F 56 L 18 118/74 95 Weight Weight 201 lb 4.513 oz I&O: 05/08/18 05/09/18 05/10/18 06:59 06:59 06:59 Intake Total 360 Output Total 1100 Balance -740 Result Diagrams: 05/08/18 03:08 05/09/18 04:35 Additional Labs: Laboratory Tests 07/07/16 08/22/16 03/12/17 10:42 07:35 11:23 Creatinine 2.32 H 1.96 H 1.80 H Troponin I B-Natriuretic Peptide 04/30/18 05/07/18 05/07/18 12:09 23:50 23:50 Creatinine 1.44 H 1.70 H Troponin I B-Natriuretic Peptide 87.5 05/07/18 05/08/18 05/08/18 23:50 03:08 03:08 Creatinine 1.38 H Troponin I 0.036 H 0.045 H B-Natriuretic Peptide 05/08/18 05/09/18 05:46 04:35 Creatinine 1.65 H Troponin I 0.039 H B-Natriuretic Peptide Radiology Reviewed by me: Yes (ECHO-EF 40%.Stress test-no ischemia. low EF) Phys Exam - Physical Examination Constitutional: NAD HEENT: PERRLA, moist MMs, sclera anicteric, oral pharynx no lesions Neck: no nodes, no JVD, supple, full ROM Respiratory: no wheezing, no rales, no rhonchi, clear to auscultation bilateral Cardiovascular: RRR, no significant murmur, no rub Gastrointestinal: soft, non-tender, no distention, positive bowel sounds Musculoskeletal: no edema, pulses present Neurological: non-focal, normal sensation, moves all 4 limbs Psychiatric: normal affect, A&O x 3 Skin: no rash Dx/Plan (1) PSVT (paroxysmal supraventricular tachycardia) Code(s): I47.1 - SUPRAVENTRICULAR TACHYCARDIA Status: Acute (2) Cardiomyopathy Code(s): I42.9 - CARDIOMYOPATHY, UNSPECIFIED Status: Chronic (3) HTN (hypertension) Code(s): I10 - ESSENTIAL (PRIMARY) HYPERTENSION Status: Chronic (4) CKD (chronic kidney disease) Code(s): N18.9 - CHRONIC KIDNEY DISEASE, UNSPECIFIED Status: Chronic Qualifiers: Chronic kidney disease stage: stage 2 (mild) Qualified Code(s): N18.2 - Chronic kidney disease, stage 2 (mild) - Plan plan discussed w/ family, DVT proph w/SCDs Cardiac ablation today d/t intolerance of BB. -: Low EF .? unknown cause.last Cath in 2003 w mild CAD -: stop HCTZ. -: started on eliquis.started on BB by cardiology-monitor -: HD stable for now * . Review of Systems - Review of Systems Constitutional: negative: fever, chills, sweats, weakness, malaise, other ENT: negative: Ear Pain, Ear Discharge, Nose Pain, Nose Discharge, Nose Congestion, Mouth Pain, Mouth Swelling, Throat Pain, Throat Swelling, Other Respiratory: negative: Cough, Dry, Shortness of Breath, Hemoptysis, SOB with Excertion, Pleuritic Pain, Sputum, Wheezing Cardiovascular: negative: chest pain, palpitations, orthopnea, paroxysmal nocturnal dyspnea, edema, light headedness, other Gastrointestinal: negative: Nausea, Vomiting, Abdominal Pain, Diarrhea, Constipation, Melena, Hematochezia, Other Genitourinary: negative: Dysuria, Frequency, Incontinence, Hematuria, Retention , Other Neurological: negative: Weakness, Numbness, Incoordination, Change in Speech, Confusion, Seizures, Other - Medications/Allergies Allergies/Adverse Reactions: Allergies Allergy/AdvReac Type Severity Reaction Status Date / Time Penicillins Allergy Verified 05/08/18 02:06 Medications: Current Medications Acetaminophen (Tylenol) 650 mg PO Q4H PRN PRN Reason: Headache/Fever/Mild Pain (1-3) Bisacodyl (Dulcolax) 10 mg PO DAILYPRN PRN PRN Reason: Constipation Carvedilol (Coreg) 6.25 mg PO BID-WM [facility] Last Admin: 05/09/18 10:57 Dose: 6.25 mg Clonidine (Catapres) 0.1 mg PO Q4H PRN PRN Reason: SBP>170/100 Enoxaparin Sodium (Lovenox) 40 mg SC 0900 [facility] Last Admin: 05/09/18 11:42 Dose: Not Given Losartan Potassium (Cozaar) 50 mg PO DAILY [facility] Last Admin: 05/09/18 10:59 Dose: 50 mg Ondansetron HCl (Zofran) 4 mg IVP Q6H PRN PRN Reason: Nausea/Vomiting Senna/Docusate Sodium (Senokot S) 2 tab PO BID PRN PRN Reason: Constipation Sodium Chloride (Flush - Normal Saline) 10 ml IVF Q12HR [facility] Last Admin: 05/09/18 10:57 Dose: 10 ml Sodium Chloride (Flush - Normal Saline) 10 ml IVF PRN PRN PRN Reason: Saline Flush
[2018-05-09] MEDS ORDERED: ADENOSINE 60 MG/20 ML VIAL ONE (16:42)
--- NOTE | 2018-05-09 18:03 | PRG ---
DATE OF SERVICE: 05/09/2018 ELECTROPHYSIOLOGY FOLLOWUP NOTE SUBJECTIVE: Mr. Valverde seems to be doing great today. No . Denies dizziness or loss of consciousness. OBJECTIVE: VITAL SIGNS: Blood pressure is 123/80, heart rate 52, respirations 18, temperature 98.3 degrees Fahrenheit. GENERAL: Alert and oriented man, no apparent distress. NECK: Supple. Jugular veins are not distended. CHEST: Coarse without crackles. HEART: Sounds regular rate and rhythm. No murmur or gallop. ABDOMEN: Benign. Bowel sounds positive, EXTREMITIES: Lower extremities without edema, clubbing, or cyanosis. DATABASE: The telemetry strips reviewed revealing sinus rhythm, sinus bradycardia, no recurrent SVT. ASSESSMENT AND PLAN: Mr. Valverde is a very pleasant 62-year-old man with history of hypertension, prior syncope, minimal coronary artery disease in the past. He presented with paroxysmal atrial tachycardia or atrial flutter documented in his EKG. He was noted to have reduced LVEF at 35% to 40%. He had tendency for tachy and bradyarrhythmias both PLAN: Our plan is to proceed with an EP study and ablation therapy, for now though scheduling issues. We will hold off on the procedure today. We will keep him without food tomorrow and plan to proceed with the ablation. Risks and benefits again discussed. He is willing to proceed. Thank you for allowing me to participate in the care of this patient. Job ID: [id number]
[2018-05-10] MEDS: Carvedilol 6.25 MG TAB PO SCH ×2 (08:35→18:02)
[2018-05-10] MEDS: Enoxaparin Sodium 40 MG/0.4 ML SYRINGE SC SCH (08:35)
[2018-05-10] MEDS: Losartan 25 MG TAB PO SCH (08:43)
[2018-05-10] MEDS ORDERED: Midazolam HCl 2 mg/2 ml Vial ONE (11:51)
[2018-05-10] MEDS ORDERED: Meperidine HCl/PF 25 MG/ML VIAL ONE (11:51)
[2018-05-10] MEDS ORDERED: Heparin 10,000 UNITS/1 ML VIAL ONE (11:55)
--- NOTE | 2018-05-10 11:57 | PDOC.CTH ---
Cardiology Progress Note - Subjective The pt seen and examined. No overnight events. No cardiac complaints. - Objective Vital Signs Temp Pulse Resp BP Pulse Ox 05/10/18 07:39 97.5 F L 55 L 20 119/79 96 05/10/18 03:14 59 L 18 123/81 98 Weight 201 lb 4.513 oz 05/09/18 05/10/18 05/11/18 06:59 06:59 06:59 Intake Total 360 720 Output Total 1100 700 Balance -740 20 - Physical Examination General/Neuro: alert & oriented x3 Neck: no JVD present Lungs: CTA Heart: RRR Abdomen: soft Extremities: other: (No edema) - Telemetry Telemetry Rhythm: SR - Labs Result Diagrams: 05/08/18 03:08 05/09/18 04:35 Troponin/CKMB CK-MB (CK-2) 1.9 ng/mL (0-6.6) 05/07/18 23:50 Troponin I 0.039 ng/mL (< 0.028) H 05/08/18 05:46 - Assessment/Plan 1. S/p PSVT with s/p Adnosine DCCV - Plan for SVT RFA today by Dr Humphries 2. Non-ischemic CMY - 3. HTN - stable 4. TIMMY - no chnaged MAR reviewed Pt. seen and eval. by me. I agree with the A/P by the [employer]. Chest clear. RRR at this time. Review of Systems - Review of Systems Constitutional: reports: no symptoms reported EENTM: reports: no symptoms reported Respiratory: reports: no symptoms reported Cardiac (ROS): reports: no symptoms reported ABD/GI: reports: no symptoms reported : reports: no symptoms reported Musculoskeletal: reports: no symptoms reported Skin: reports: no symptoms reported
[2018-05-10] MEDS ORDERED: PROPOFOL 200 MG/20 ML VIAL ONE (12:01)
[2018-05-10] MEDS ORDERED: Isoproterenol 0.2 MG/1 ML AMP ONE (12:53)
[2018-05-10] MEDS ORDERED: Propofol 500 MG/50 ML VIAL ONE (13:00)
[2018-05-10] MEDS ORDERED: Promethazine HCl 25 MG/ML VIAL SLOW IVP PRN (14:20)
[2018-05-10] MEDS ORDERED: Ondansetron HCl/PF 4 MG/2 ML Vial IVP PRN (14:20)
[2018-05-10] MEDS ORDERED: Promethazine HCl 25 MG/ML VIAL IM PRN (14:20)
[2018-05-10] MEDS ORDERED: hydrALAZINE 20 MG/ML VIAL ONE (14:54)
--- NOTE | 2018-05-10 14:56 | PDOC.PN ---
- Subjective Encounter Start Date: 05/10/18 Encounter Start Time: 14:55 Subjective: no complains, no cp or palpitations - Objective Resuscitation Status - Order Detail: 05/08/18 01:56 Resuscitation Status Routine Resuscitation Status: FULL: Full Resuscitation MAR Reviewed: Yes Vital Signs & Weight: Vital Signs (12 hours) Temp Pulse Resp BP Pulse Ox 05/10/18 08:35 96 05/10/18 07:39 97.5 F L 55 L 20 119/79 96 05/10/18 03:14 59 L 18 123/81 98 Weight Weight 201 lb 4.513 oz I&O: 05/09/18 05/10/18 05/11/18 06:59 06:59 06:59 Intake Total 360 720 Output Total 1100 700 Balance -740 20 Result Diagrams: 05/08/18 03:08 05/09/18 04:35 Phys Exam - Physical Examination HEENT: PERRLA, moist MMs, sclera anicteric, TM's clear, oral pharynx no lesions , 2+ tonsils Neck: no nodes, no JVD, supple, full ROM Respiratory: no wheezing, no rales, no rhonchi, clear to auscultation bilateral Cardiovascular: no significant murmur, no rub tachy Gastrointestinal: soft, non-tender, no distention, positive bowel sounds Musculoskeletal: no edema, pulses present Neurological: non-focal, normal sensation, moves all 4 limbs Psychiatric: normal affect, A&O x 3 Skin: no rash, normal turgor, cap refill <2 seconds Dx/Plan (1) PSVT (paroxysmal supraventricular tachycardia) Code(s): I47.1 - SUPRAVENTRICULAR TACHYCARDIA Status: Acute Comment: plans for ablation today, S/P adenosine and DCCV (2) CKD (chronic kidney disease) Code(s): N18.9 - CHRONIC KIDNEY DISEASE, UNSPECIFIED Status: Chronic Qualifiers: Chronic kidney disease stage: stage 2 (mild) Qualified Code(s): N18.2 - Chronic kidney disease, stage 2 (mild) (3) Cardiomyopathy Code(s): I42.9 - CARDIOMYOPATHY, UNSPECIFIED Status: Chronic Qualifiers: Cardiomyopathy type: other Qualified Code(s): I42.8 - Other cardiomyopathies Comment: NON ISCHEMIC (4) HTN (hypertension) Code(s): I10 - ESSENTIAL (PRIMARY) HYPERTENSION Status: Chronic - Plan cont current plan of care, plan discussed w/ family * .
--- NOTE | 2018-05-10 19:24 | OP ---
DATE OF PROCEDURE: 05/10/2018 This is an electrophysiology study and radiofrequency ablation report. REASON FOR PROCEDURE: Mr. Valverde is a pleasant 62-year-old man, who is experiencing supraventricular tachyarrhythmia episodes, here for ablation. DESCRIPTION OF PROCEDURE: The patient received propofol by Anesthesia specialist. After adequate level of sedation achieved, the left and right femoral venous area were prepped, draped, and anesthetized using subcutaneous lidocaine. A 6 and 8-Luxembourgish sheaths were introduced from the left side through which a decapolar and octapolar catheter were advanced to the right atrium, right ventricle, His bundle, and eventually to the CS position. Pacing and mapping recording were performed at each location. Following findings were noted. The baseline rhythm was sinus rhythm at a rate of 1035 milliseconds, RI 105, QRS 75 milliseconds, QT 367 milliseconds, AH 59 milliseconds, HV 56 milliseconds, sinus node recovery time was 1569, corrected sinus node recovery time was 534, AV Wenckebach cycle length was 320 milliseconds, retrograde was 440 milliseconds, and concentric retrograde VA conduction was seen. AV ERP was measured at 600/260 milliseconds. Dual AV tristen physiology was noted. Burst atrial pacing was able to reinduce atrial tachycardia, cycle length varying between 415 to 440 millisecond. At this point, the right femoral vein was cannulated and an 8-Luxembourgish sheath was introduced through which a ThermoCool SFST catheter was advanced to the right atrium. 3D map of the right atrium was obtained with activation map of the atrial tachycardia also was recorded. We were able to demonstrate earliest activation 18 milliseconds before CS in the right atrium from about 7 o'clock location on the tricuspid anulus. Cautery at this location was performed with total of 7 lesions in 3 minutes and 21 seconds duration at 40 logan delivered with max temperature of 31, average temperature of 21 degrees, and max impedence 188 ohms. During the cautery, the atrial tachycardia terminated and later was not reinducible with burst atrial pacing. Isuprel was administered at this point and then a reconnection reablated. Further burst atrial pacing did not induce further right or left atrial tachyarrhythmias. The cardiac silhouette did not change with the procedure and the patient tolerated the procedure well. CONCLUSION: 1. He has an inducible right atrial tachycardia originating in the inferolateral portion of the tricuspid anulus. 2. Cautery at the earliest activation eliminated tachyarrhythmia. 3. Borderline abnormal sinus tristen function seen. 4. Normal AV tristen and His-Purkinje function is seen, but dual AV tristen physiology was noted without inducibility of atrioventricular tristen reentrant tachycardia. PLAN: Routine followup. Job ID: [id number]
[2018-05-11 09:00] VITALS: TEMP 97.5
[2018-05-11 09:12] LABS: Anion Gap 11 mmol/L (10-20); BUN (Urea Nitrogen) 32 mg/dL (8.4-25.7); Calc. Creatinine Clearance 58 mL/min (70-130); Calcium 8.9 mg/dL (7.8-10.44); Carbon Dioxide 26 mmol/L (23-31); Chloride 106 mmol/L (98-107); Estimated GFR-MDRD 42; Glucose 88 mg/dL (80-115); Potassium 4.7 mmol/L (3.5-5.1); Sodium 138 mmol/L (136-145)
[2018-05-11] MEDS: Carvedilol 6.25 MG TAB PO SCH (09:34)
[2018-05-11] MEDS: Losartan 25 MG TAB PO SCH (09:34)
[2018-05-11] MEDS: Enoxaparin Sodium 40 MG/0.4 ML SYRINGE SC SCH (09:34)
[2018-05-11 09:39] VITALS: BP 139/63
--- NOTE | 2018-05-11 21:04 | EKG ---
Test Reason : Blood Pressure : / mmHG Vent. Rate : 100 BPM Atrial Rate : 100 BPM P-R Int : 162 ms QRS Dur : 094 ms QT Int : 360 ms P-R-T Axes : 054 -48 106 degrees QTc Int : 464 ms Sinus rhythm with Premature atrial complexes with Abberant conduction Possible Left atrial enlargement Left anterior fascicular block Left ventricular hypertrophy with repolarization abnormality Abnormal ECG Confirmed by RADHA ARMENTA ([id number]), technical writer and editor JESSIE SANCHEZ ([id number]) on 05/11/2018 9:03:54 PM Referred By: Confirmed By:RADHA ARMENTA
--- NOTE | 2018-05-11 21:04 | EKG ---
Test Reason : Blood Pressure : / mmHG Vent. Rate : 180 BPM Atrial Rate : 180 BPM P-R Int : 000 ms QRS Dur : 086 ms QT Int : 282 ms P-R-T Axes : 000 -45 184 degrees QTc Int : 488 ms Sinus tachycardia with short AL Left anterior fascicular block Left ventricular hypertrophy with repolarization abnormality Abnormal ECG Confirmed by RADHA ARMENTA ([id number]), scientific editor JESSIE SANCHEZ ([id number]) on 05/11/2018 9:03:54 PM Referred By: Confirmed By:RADHA ARMENTA
--- NOTE | 2018-05-11 21:04 | EKG ---
Test Reason : Blood Pressure : / mmHG Vent. Rate : 169 BPM Atrial Rate : 169 BPM P-R Int : 122 ms QRS Dur : 086 ms QT Int : 306 ms P-R-T Axes : 000 221 -07 degrees QTc Int : 513 ms Sinus tachycardia Right superior axis deviation Pulmonary disease pattern Abnormal ECG Confirmed by RADHA ARMENTA ([id number]), state editor JESSIE SANCHEZ ([id number]) on 05/11/2018 9:03:52 PM Referred By: Confirmed By:RADHA ARMENTA
--- NOTE | 2018-05-11 21:04 | EKG ---
Test Reason : Blood Pressure : / mmHG Vent. Rate : 068 BPM Atrial Rate : 068 BPM P-R Int : 176 ms QRS Dur : 100 ms QT Int : 424 ms P-R-T Axes : 042 -45 263 degrees QTc Int : 450 ms Normal sinus rhythm Possible Left atrial enlargement Incomplete right bundle branch block Left anterior fascicular block Left ventricular hypertrophy Abnormal ECG Confirmed by RADHA ARMENTA ([id number]), industrial editor JESSIE SANCHEZ ([id number]) on 05/11/2018 9:03:57 PM Referred By: Confirmed By:RADHA ARMENTA
--- NOTE | 2018-05-11 23:10 | DIS ---
DATE OF ADMISSION: 05/08/2018 DATE OF DISCHARGE: 05/11/2018 ADMISSION DIAGNOSES: 1. Paroxysmal supraventricular tachycardia. 2. Hypertensive urgency. 3. Acute kidney injury over chronic kidney disease. 4. Hyperglycemia. DISCHARGE DIAGNOSES: 1. Supraventricular tachycardia. 2. Hypertension. 3. Acute over chronic renal failure. HISTORY OF PRESENT ILLNESS: This is a 62-year-old gentleman who presented to the ER with chest pain and high blood pressure. On initial evaluation, the patient's heart rate was in 170s and regular with a blood pressure of 193/153, respiratory rate of 20, and temperature of 97.6, requiring adenosine 6 mg IV x1. The patient's blood pressure was then subsequently controlled with clonidine and Coreg. After further evaluation, EP took the patient for an ablation. After the ablation process, the patient's heart rate settled down to normal sinus rhythm. The patient was then discharged on Coreg and reduced dose of losartan as his creatinine had increased from 1.4 at baseline to 2.6 during discharge. The patient was advised to have a close followup with his primary care physician and also the insect control aide for his increasing creatinine. PROCEDURE NOTE: 1. The patient has an inducible right atrial tachycardia originating from the inferolateral portion of the tricuspid annulus. 2. Cautery, had earliest activation elevated tachyarrhythmia. DISCHARGE INSTRUCTIONS: 1. The patient was instructed to follow up with his insect control aide and also the primary care physician. 2. The patient was advised that his creatinine has bumped up from his baseline of 1.4 to 2.6. The patient to follow up for the same with his primary care physician. 3. Take the medications as prescribed. 4. Heart healthy diet. 5. Activity as tolerated. Job ID: [id number]
== END 2018-05-11 12:48 | disposition home or self-care (01) | DRG 274 ==
LOC: ERS 23:21 → OBSVTOIN 05-08 01:20 → ERHOLD 05-08 01:20 → 2SW 05-08 12:35
PROVIDERS: ADMIT Hospitalist; ATTEND Hospitalist
PROC: 02583ZZ Destruction of Conduction Mechanism, Percutaneous Approach (ICD-10-PCS; principal; 2018-05-10)
DX: I47.1 Supraventricular tachycardia (principal); N17.9 Acute kidney failure, unspecified; I16.1 Hypertensive emergency; I42.8 Other cardiomyopathies; F17.210 Nicotine dependence, cigarettes, uncomplicated; I12.9 Hypertensive chronic kidney disease with stage 1 through stage 4 chronic kidney disease, or unspecified chronic kidney disease; N18.2 Chronic kidney disease, stage 2 (mild); Z90.79 Acquired absence of other genital organ(s); Z88.0 Allergy status to penicillin; Z79.899 Other long term (current) drug therapy; R73.9 Hyperglycemia, unspecified
CPT/HCPCS: 36415; 71045; 71275; 76942; 78452; 80048; 80053; 82550; 82553; 83880; 84484; 85025; 93005; 93010; 93017; 93306; 93613; 93623; 93653; 96361; 96374; 96375; A9500; C1730; C1769; J0153; J0360; J1644; J1650; J2175; J2250; J2704; J3490; Q9966

== ENCOUNTER 2019-02-04 11:37 | Outpatient (CLI) | payer OTHER ==
--- NOTE | 2019-02-04 11:55 | RAD ---
EXAM: Chest PA and lateral: HISTORY: Dyspnea COMPARISON: 05/07/2018 FINDINGS: Heart: Normal cardiac silhouette Aorta: Unremarkable Pulmonary vessels: Normal Costophrenic angles: Costophrenic angles are clear. Lungs: No consolidation or masses. Pneumothorax: No pneumothorax Osseous structures: No osseous abnormalities IMPRESSION: No acute cardiopulmonary process.
== END 2019-02-04 11:38 | disposition home or self-care (01) ==
LOC: RAD 11:37
PROVIDERS: ATTEND Internal Medicine Pulmonary Disease
DX: R06.00 Dyspnea, unspecified (principal)
CPT/HCPCS: 71046

== ENCOUNTER 2019-04-28 11:37 | Outpatient (CLI) | payer OTHER ==
[2019-04-28] MEDS ORDERED: Iopamidol 370 76% 100 ML VIAL ONE (15:04)
--- NOTE | 2019-04-28 15:47 | CT ---
CT ANGIOGRAM CHEST WITH CONTRAST: Date: 04/28/2019 HISTORY: 63-year-old male follow-up pulmonary nodules and follow-up dilated aortic root. ICD-10: I77.810. TECHNIQUE: IV contrast: Isovue 370. Arterial bolus chasing scan performed through the entire chest, with contrast bolus timing for maximu m density at thoracic aorta. Coronal and sagittal 3D MIP reconstructions. COMPARISON: 05/08/2018. FINDINGS: Variability in measurements of aortic diameter depends on exact plate location and placement of curso rs on images. The numbers on the current report will differ from that of the prior report because of difference in cursor placement. Aortic root: 4.8 cm, unchanged. Mid ascending aorta: 4.7 cm, unchanged. Aortic arch: 3.3 cm, unchanged. Descending thoracic aorta: 3.4 cm, unchanged. No thoracic aortic dissection. No pleural effusion, consolidation, pulmonary edema, or pneumothorax. 0.5 cm pulmonary nodule abutting the lateral dome of the right hemidiaphragm (axial image 84 of 120, series 4), unchanged, and benign morphology. At least three noncalcified small triangular pulmonary nodules along the right minor fissure all have morphology classic for benign intrapulmonary lymph nodes with very thin craniocaudal dimensions, and approximately 5 mm or smaller in greatest dimensions, unchanged. These do not require followup. 2 mm noncalcified pulmonary nodule at lateral aspect of left upper lobe very close to the pleura is u nchanged and benign. No new suspicious pulmonary nodules. No mediastinal or hilar lymphadenopathy. No interval change overall. IMPRESSION: 1. Ectasia of ascending aorta. 2. Several benign pulmonary nodules. 3. No interval change overall in 1 year. POS: OFF
== END 2019-04-28 11:38 | disposition home or self-care (01) ==
LOC: BICCT 11:37
PROVIDERS: ATTEND Internal Medicine Pulmonary Disease
DX: I77.810 Thoracic aortic ectasia (principal); R91.1 Solitary pulmonary nodule; R91.8 Other nonspecific abnormal finding of lung field; I77.811 Abdominal aortic ectasia
CPT/HCPCS: 71275; 82565; Q9967

== ENCOUNTER 2020-04-21 09:25 | Outpatient (CLI) | payer MEDICARE, OTHER ==
--- NOTE | 2020-04-21 11:05 | CT ---
EXAM: CT Chest W Con PROVIDED CLINICAL HISTORY: Pulmonary nodules COMPARISON: 04/28/2019 FINDINGS: The heart, pericardium and great vessels demonstrate a stable CT appearance. There is stable ectasia of the ascending thoracic aorta. There is no evidence for thoracic lymph node enlargement. The airway appears patent and of normal caliber. The lungs are free of significant opacity. Several intrapulmonary lymph nodes are redemonstrated. There is no pleural fluid or pneumothorax apparent. The visualized portions of the upper abdomen demonstrate no significant abnormality. The osseous structures demonstrate no concerning lytic or blastic lesions. IMPRESSION: Stable exam.
[2020-04-21] MEDS ORDERED: Iopamidol-370 76% 500 ML 1 ML ONE (13:08)
== END 2020-04-21 09:26 | disposition home or self-care (01) ==
LOC: BICCT 09:25
PROVIDERS: ATTEND Internal Medicine Pulmonary Disease
DX: R91.1 Solitary pulmonary nodule (principal)
CPT/HCPCS: 71260; 82565; Q9967

== ENCOUNTER 2020-12-24 14:41 | Outpatient (CLI) | payer MEDICARE | END 2020-12-24 14:42 | disposition home or self-care (01) | LOC: BICULT 14:41 | PROVIDERS: ATTEND Internal Medicine | DX: I48.91 Unspecified atrial fibrillation (principal); R42 Dizziness and giddiness; R09.89 Other specified symptoms and signs involving the circulatory and respiratory systems | CPT/HCPCS: 93880 ==

== ENCOUNTER 2021-01-07 12:51 | Emergency (ER) | payer MEDICARE ==
[~2021-01-07 12:51] MED LIST changes: +Boostrix 0.5 ML (Tdap) VIAL ONE; +CEFAZOLIN 1 GM VIAL ONE; -ISOVUE-370 76%-LOCM 1 ML ONE; +Lidocaine 1% w/Epinephrine 1:100K 20 ML VIAL ONE; +Sterile Water 10 ML ONE
[2021-01-07 13:11] LABS: ALT (SGPT) 14 U/L (8-55); AST (SGOT) 16 U/L (5-34); Albumin 4.3 g/dL (3.4-4.8); Alkaline Phosphatase 69 U/L (40-110); Anion Gap 12 mmol/L (10-20); BUN (Urea Nitrogen) 16 mg/dL (8.4-25.7); Bilirubin, Total 0.5 mg/dL (0.2-1.2); Calc. Creatinine Clearance 0 mL/min (70-130); Calcium 9.1 mg/dL (7.8-10.44); Carbon Dioxide 23 mmol/L (23-31); Chloride 106 mmol/L (98-107); Globulin 3.1 g/dL (2.4-3.5); Glucose 110 mg/dL (80-115); Potassium 4.4 mmol/L (3.5-5.1); Protein, Total 7.4 g/dL (5.8-8.1); Sodium 137 mmol/L (136-145)
[2021-01-07 13:13] LABS: INR-International Normal Ratio 1.1; PTT 32.3 sec (22.9-36.1); Prothrombin Time 14.4 sec (12.0-14.7)
[2021-01-07 13:14] LABS: #Lymphocytes 1.3 thou/uL (1.20-3.40); #Monocytes 0.5 thou/uL (0.11-0.59); #Neutrophils 7.4 thou/uL (1.40-6.50); %Basophils 0.5 % (0.0-1.0); %Eosinophils 0.5 % (0.0-10.0); %Lymphocytes 13.6 % (21.0-51.0); %Monocytes 5.8 % (0.0-10.0); %Neutrophils 79.6 % (42.0-75.0); Hemoglobin 15.5 g/dL (14.0-18.0); Mean Corpuscular HGB CONC 33.3 g/dL (32.0-36.0); Mean Corpuscular Hemoglobin 31.4 pg (27.0-31.0); Mean Corpuscular Volume 94.1 fL (78.0-98.0); Mean Platelet Volume 9.8 fL (7.4-10.4); Platelet Count 185 thou/uL (130-400); RBC Distribution Width 12.8 % (11.5-14.5); Red Blood Cell (RBC) Count 4.94 mill/uL (4.70-6.10); White Blood Cell (WBC) Count 9.3 thou/uL (4.8-10.8)
== END 2021-01-07 13:42 | disposition home or self-care (01) ==
LOC: ERS 12:51
DX: S02.32XA Fracture of orbital floor, left side, initial encounter for closed fracture (principal); S01.81XA Laceration without foreign body of other part of head, initial encounter; I48.91 Unspecified atrial fibrillation; I47.1 Supraventricular tachycardia; I12.9 Hypertensive chronic kidney disease with stage 1 through stage 4 chronic kidney disease, or unspecified chronic kidney disease; N18.9 Chronic kidney disease, unspecified; F17.210 Nicotine dependence, cigarettes, uncomplicated; Z79.899 Other long term (current) drug therapy; W19.XXXA Unspecified fall, initial encounter
CPT/HCPCS: 70450; 70486; 72125; 80053; 85025; 85610; 85730; 90471; 90715; 93005; 96365; 96366; J0690

== ENCOUNTER 2021-06-07 08:37 | Outpatient (CLI) | payer MEDICARE ==
[2021-06-07] MEDS ORDERED: Iopamidol 370 76% 100 ML VIAL ONE (12:15)
== END 2021-06-07 08:38 | disposition home or self-care (01) ==
LOC: CT 08:37
PROVIDERS: ATTEND Internal Medicine Cardiovascular Disease
DX: I77.810 Thoracic aortic ectasia (principal); R91.8 Other nonspecific abnormal finding of lung field
CPT/HCPCS: 71275; 82565; Q9967

== ENCOUNTER 2021-12-29 14:18 | Outpatient (CLI) | payer MEDICARE ==
[2021-12-29 16:22] LABS: #Basophils 0.1 10x3/uL (0.0-0.2); #Eosinphils 0.1 10x3/uL (0.0-0.5); #Monocytes 0.6 10x3/uL (0.0-1.1); #Neutrophils 4.6 10x3/uL (1.5-8.4); %Basophils 0.7 % (0.0-2.0); %Eosinophils 1.6 % (0.0-6.0); %Lymphocytes 28.9 % (18.0-47.0); %Monocytes 7.5 % (0.0-10.0); %Neutrophils 60.9 % (40.0-75.0); Mean Corpuscular HGB CONC 33.1 g/dL (32.0-36.0); Mean Corpuscular Hemoglobin 30.9 pg (27.0-33.0); Mean Corpuscular Volume 93.4 fl (81.2-95.1); Mean Platelet Volume 11.6 fl (7.4-10.4); Platelet Count 198 10x3/uL (150-450); RBC Distribution Width 13.4 % (11.5-14.5); Red Blood Cell (RBC) Count 4.53 10x6/uL (4.32-5.72); White Blood Cell (WBC) Count 7.5 10x3/uL (3.5-10.5)
[2021-12-29 16:47] LABS: Anion Gap 13 mmol/L (10-20); BUN (Urea Nitrogen) 20 mg/dL (8.4-25.7); Calc. Creatinine Clearance 0 mL/min (70-130); Carbon Dioxide 25 mmol/L (23-31); Chloride 108 mmol/L (98-107); Estimated GFR 53; Glucose 84 mg/dL (80-115); Potassium 4.9 mmol/L (3.5-5.1); Sodium 141 mmol/L (136-145)
[2021-12-29 16:50] LABS: Prothrombin Time 10.7 sec (9.5-12.1)
== END 2021-12-29 14:19 | disposition home or self-care (01) ==
LOC: LABBT 14:18
PROVIDERS: ATTEND Orthopaedic Surgery
DX: Z01.812 Encounter for preprocedural laboratory examination (principal); M17.12 Unilateral primary osteoarthritis, left knee; Z20.822 Contact with and (suspected) exposure to COVID-19
CPT/HCPCS: 80048; 85025; 85610; 87081; 87811

== ENCOUNTER 2022-02-09 14:36 | Outpatient (CLI) | payer MEDICARE ==
[2022-02-09 16:46] LABS: #Basophils 0.1 10x3/uL (0.0-0.2); #Eosinphils 0.1 10x3/uL (0.0-0.5); #Monocytes 0.6 10x3/uL (0.0-1.1); #Neutrophils 4.2 10x3/uL (1.5-8.4); %Basophils 0.9 % (0.0-2.0); %Lymphocytes 28.5 % (18.0-47.0); %Monocytes 8.6 % (0.0-10.0); %Neutrophils 59.7 % (40.0-75.0); Mean Corpuscular HGB CONC 34.4 g/dL (32.0-36.0); Mean Corpuscular Hemoglobin 31.8 pg (27.0-33.0); Mean Corpuscular Volume 92.5 fl (81.2-95.1); Mean Platelet Volume 11.5 fl (7.4-10.4); Platelet Count 212 10x3/uL (150-450); RBC Distribution Width 13.2 % (11.5-14.5)
[2022-02-09 17:06] LABS: INR-International Normal Ratio 0.9; Prothrombin Time 10.2 sec (9.5-12.1)
[2022-02-09 17:27] LABS: Anion Gap 14 mmol/L (10-20); BUN (Urea Nitrogen) 22 mg/dL (8.4-25.7); Calc. Creatinine Clearance 0 mL/min (70-130); Calcium 9.1 mg/dL (7.8-10.44); Carbon Dioxide 24 mmol/L (23-31); Chloride 107 mmol/L (98-107); Estimated GFR 38; Glucose 81 mg/dL (80-115); Potassium 4.6 mmol/L (3.5-5.1); Sodium 140 mmol/L (136-145)
== END 2022-02-09 14:37 | disposition home or self-care (01) ==
LOC: LABBT 14:36
PROVIDERS: ATTEND Orthopaedic Surgery
DX: Z01.812 Encounter for preprocedural laboratory examination (principal); M17.12 Unilateral primary osteoarthritis, left knee
CPT/HCPCS: 80048; 85025; 85610; 87081

== ENCOUNTER 2022-06-14 07:53 | Outpatient (CLI) | payer MEDICARE ==
[2022-06-14] MEDS ORDERED: Iopamidol-370 76% 500 ML 1 ML ONE (08:58)
== END 2022-06-14 07:54 | disposition home or self-care (01) ==
LOC: BICCT 07:53
PROVIDERS: ATTEND Internal Medicine Cardiovascular Disease
DX: I77.810 Thoracic aortic ectasia (principal)
CPT/HCPCS: 71275; 82565; Q9967

== ENCOUNTER 2023-06-15 08:21 | Outpatient (CLI) | payer MEDICARE | END 2023-06-15 08:22 | disposition home or self-care (01) | LOC: BICCT 08:21 | PROVIDERS: ATTEND Internal Medicine Cardiovascular Disease | DX: I77.810 Thoracic aortic ectasia (principal); K80.20 Calculus of gallbladder without cholecystitis without obstruction | CPT/HCPCS: 71275; 82565 ==